=== PATIENT | female | born 1965 | race Caucasian/White ===

== ENCOUNTER 2022-02-20 12:44 | Outpatient (CLI) | payer OTHER, SELFPAY ==
--- NOTE | 2022-02-20 14:36 | WPDPFTINT ---
PFT Procedure Performed PFT Procedure Performed Plethysmography (Lung Vol) Diffusing Cap (DLCO) Flow Vol Loop Spirometry w/o Bronchodil PFT Interpretation Lung volumes were measured with the body plethysmography method. Lung volumes are unremarkable. Spirometry showed normal expiratory flow rates and a normal FEV1 to FVC ratio 78%. No post bronchodilator study carried out. Lung diffusion capacity is mildly reduced at 68% predicted. The flow volume loop is unremarkable. Impression: Spirometry and lung volumes within the normal range. Mild reduction in lung diffusion capacity.
== END 2022-02-20 12:45 | disposition home or self-care (01) ==
LOC: ANHPFT 12:45
PROVIDERS: PCP Nurse Practitioner Adult Health; Visit Provider Physician Assistant
DX: J45.20 Mild intermittent asthma, uncomplicated (principal)
CPT/HCPCS: 94375; 94726; 94729

== ENCOUNTER 2022-03-11 09:10 | Outpatient (CLI) | payer OTHER, SELFPAY ==
--- NOTE | ~2022-03-11 | DEXA_ITS ---
Bone Density Report Name: YANI GARRETT Age: 56 Sex: Female Ethnicity: White Date of : 1965 Indication: postmenopausal; screening for osteoporosis; height loss; hysterectomy; Referring Provider: PEG, DAIJA Study: Bone densitometry was performed. Exam Date: March 11, 2022 Accession number: [id number] Bone Density: Region BMD T-score Z-score Classification AP Spine(L1, L2) 1.161 1.7 2.7 Normal Femoral Neck (Left) 0.724 -1.1 0.0 Osteopenia Total Hip (Left) 0.861 -0.7 0.1 Normal Femoral Neck (Right) 0.732 -1.1 0.0 Osteopenia Total Hip (Right) 0.867 -0.6 0.1 Normal Total Hip Mean 0.864 -0.7 0.1 Normal World Health Organization criteria for BMD impression classify patients as: Normal (T-score at or above -1.0), Osteopenia (T-score between -1.0 and -2.5), or Osteoporosis (T-score at or below -2.5). 10-year Fracture Risk: FRAX not reported because: Treated for osteoporosis Clinical Information Provided by Patient: Smokes Is being treated for osteoporosis Has used the following medications: Vitamin D, Calcium Has the following medical conditions: Hysterectomy, hypothyroidism Patient maximum height was 64 Menopause Age: 49 Drinks caffeinated beverages Onset of menses at age 13 Number of children 3 Impression: The patient has low bone mass, based on the Left Femoral Neck T-score. The patient has risk factors, including: smoking. Discussion: It is important to ask patients whether they are taking their medications and to encourage continued and appropriate compliance with their osteoporosis therapies to reduce fracture risk. It is also important to review their risk factors and encourage appropriate calcium and vitamin D intakes, exercise, fall prevention and other lifestyle measures. Follow-Up: Consider a repeat BMD and Vertebral Fracture Assessment (VFA) exam in 2 years or sooner if medically necessary, to reassess this patient's status. Reported by: [facility] on 03/11/2022 9:32:00 AM. Reviewed, dictated and finalized at location [facility]
== END 2022-03-11 09:11 | disposition home or self-care (01) ==
LOC: ANHIMG 09:12
PROVIDERS: PCP Nurse Practitioner Adult Health; Visit Provider Physician Assistant
DX: Z13.820 Encounter for screening for osteoporosis (principal); M85.89 Other specified disorders of bone density and structure, multiple sites
CPT/HCPCS: 77080

== ENCOUNTER 2022-03-13 09:32 | Outpatient (CLI) | payer OTHER, SELFPAY ==
--- NOTE | 2022-03-13 11:00 | NEURO_ITS ---
Impression: # Complains of pain in lower extremities. History of low back spinal fusion. # Normal nerve conduction study including F-waves. # Needle/EMG exam revealed neurogenic change in bilateral EDB with no active fibs. # Clinical correlation recommended. Motor Nerve Conduction Lower Extremities Peroneal Nerve Conduction Velocity (m/sec) Terminal Latency (msec) Response Voltage(mV) Popliteal space-Ankle Ankle Extensor Dig Brevis Popliteal space Ankle Right 47 4.3 3 3 Left 42 4.6 1 1 Tibial Nerve Conduction Velocity (m/sec) Terminal Latency (msec) Response Voltage(mV) Popliteal space-Ankle Ankle-Extensor Dig Brevis Popliteal space Ankle Right 48 4.2 3 5 Left 44 4.1 2 4 F-waves Peroneal Nerve (ms) Tibial Nerve (ms) Right 52.5 52.2 Left 54.3 53.4 Sensory Nerve Conduction Lower Extremities Sural Nerve Stimulation Terminal Latency (msec) Ankle Response Voltage (uV) Ankle Response Velocity (m/sec) Right 3.2 8 50 Left 3.3 8 48 Superficial Peroneal Nerve Stimulation Terminal Latency (msec) Ankle Response Voltage (uV) Ankle Response Velocity (m/sec) Right 3.2 11 50 Left 3.0 5 53 Left Right Muscles Examined Fibrillation Fasciculation Scarcity Voltage Duration Left Right Left Right Left Right Left Right Left Right X X Ant Tibialis X X Gastroc X X Fibularis Long X X Flex Dig Long X X Ext Dig Brev +++ +++ Decr Decr >12ms >12ms Abd Hallucis X X Quadriceps Paraspinals MTDD
== END 2022-03-13 09:33 | disposition home or self-care (01) ==
LOC: ANHNEURO 09:34
PROVIDERS: PCP Nurse Practitioner Adult Health; Visit Provider Nurse Practitioner Adult Health
DX: M47.26 Other spondylosis with radiculopathy, lumbar region (principal)
CPT/HCPCS: 95886; 95910

== ENCOUNTER 2022-04-10 08:36 | Outpatient (CLI) | payer OTHER, SELFPAY ==
--- NOTE | ~2022-04-10 | MR_ITS ---
MRI of the lumbar spine Clinical History: Spondylosis, radiculopathy Technique: Axial T2-weighted images, and sagittal T1-weighted, T2-weighted, and T2 fat-sat images wer e acquired. Findings: There is posterior fusion hardware from L3 through L5, with bilateral rods and transpedicul ar screws present. There is disc fusion device at the L4-L5 disc space. Laminectomy defects of L4 and L5 are present. There are reactive marrow signal changes due to underlying degenerative disc disease , most notably about the L2-L3 disc space. Grade 1 anterolisthesis of L5 over S1 noted. No acute frac ture. At L1-L2, disc bulge and facet arthropathy result in mild to moderate thecal sac compression. Bilater al neural foramina are preserved. At L2-L3, there is probable disc bulge with probable superimposed chronic disc extrusion extending muse periorly. These factors, and comminution with facet arthropathy, contribute to severe thecal sac comp ression. There is severe right neural foraminal narrowing. Left neural foramen preserved. At L3-L4, no definite disc bulge or herniation seen. No spinal canal stenosis. Probable mild to moder ate bilateral neural foraminal narrowing. At L4-L5, no definite disc bulge or herniation. No oxana spinal canal stenosis. Suspected mild to mod erate left neural foraminal narrowing. At L5-S1, there is disc uncovering and facet arthropathy. No oxana spinal canal stenosis. There is pr obable moderate to severe bilateral neural foraminal narrowing. Paravertebral soft tissues are unremarkable. Impression: Disc extrusion at L2-L3 with additional degenerative factors, which contribute to severe thecal sac c ompression and severe right neural foraminal narrowing at this level. Posterior fusion from L3 through L5 with associated hardware and L4 and L5 laminectomy defects. Grade 1 anterolisthesis of L5 over S1. Mild to moderate thecal sac compression at L1-L2. Additional degenerative changes and neural foraminal narrowing, as detailed above. Reviewed, dictated and finalized at [facility] M. [employer] Impression: Disc extrusion at L2-L3 with additional degenerative factors, which contribute to severe thecal sac compression and severe right neural foraminal narrowing at this level. Posterior fusion from L3 through L5 with associated hardware and L4 and L5 lami nectomy defects. Grade 1 anterolisthesis of L5 over S1. Mild to moderate thecal sac compression at L1-L2. Additional degenerative changes and neural foraminal narrowing, as detailed abo ve.
== END 2022-04-10 08:37 | disposition home or self-care (01) ==
PROVIDERS: Visit Provider Nurse Practitioner Adult Health
DX: M51.16 Intervertebral disc disorders with radiculopathy, lumbar region (principal); M47.26 Other spondylosis with radiculopathy, lumbar region
CPT/HCPCS: 72148

== ENCOUNTER 2022-04-29 08:00 | Outpatient (RCR) | payer OTHER, SELFPAY ==
--- NOTE | 2022-02-07 13:42 | PTOPEVAL1 ---
Assessment and note entered by Donte Graf, PT, DPT Evaluation Information Assessment Status Evaluation Diagnosis back pain Onset 4 years Subjective Information Pt states she has R shoulder pain, sacral pain, pain down the entire front and back on her R leg, and muscle cramping down her L leg. She states she had a lumbar fusion about 4 years ago but cannot recall which levels. She states she screws in her back that have undone themselves but that it is nothing to worry about right now . She states her pain is the same and before she had the surgery. Pt states she worked for a few years after her surgery but is not currently, she also reports last year she had covid and has brain manage from it. Reported Pain Level Pain Score 5: Self Report Assessment PT Clinical Summary Baylee presents to therapy today for her initial evaluation with a diagnosis of lumbar radiculopathy. Today she demonstrates limitations in her lumbar mobility, likely d/t her prior fusion but demonstrates normal and pain free BLE motion excluding active hip extension. She demonstrates BLE weakness globally with an presence of jerky motions with increased resistance. She has tenderness to palpation in her R piriformis and reports on numbness and tingling that does down her R leg. Tenderness was also reported in her L lumbar paraspinals and there was palpable cordlike tissue tightness. Skilled physical therapy services are indicated to address the deficits noted above, to manage pain, to decreased soft tissue reconstruction, and to promote improved functional mobility. Modified Oswestry 29/50, 58% disability Plan of Care Interventions Electrical Stimulation,Gait Training,Hot Pack/Cold Pack,Manual Therapy,Neuro Re-education,Patient/ Caregiver Educati,Therapeutic Activities, Therapeutic Exercise,Ultrasound PT Services Indicated Yes Treatment Frequency and 1x/wk for 6 wks Duration These treatments will address the objective and functional deficits as defined above. The patient will be advanced safely and appropriately in order for the patient to progress towards his/her prior level of function. Additional exercises will be introduced and as well as a comprehensive home exercise program upon discharge, if needed, ?to ensure carryover of functional gains achieved in the clinic. This treatment plan has been reviewed and agreement upon by the patient.
--- NOTE | 2022-03-12 17:21 | PCPTNOTE ---
Patient called & cancelled her next 2 scheduled appointments this due to transportations issues. She is going to try to get them rescheduled.
--- NOTE | 2022-04-02 09:53 | PTOPPROG ---
Assessment and note entered by Donte Graf, PT, DPT Evaluation Information Assessment Status Progress Diagnosis back pain Onset 4 years Subjective Information Pt states overall she has good days and bad days. She states her L leg is more bothersome than her R leg. She reports intermittent complaince with her HEP. She states her problem is just her weight. Pt states she just took all of her pain meds so her pain is not bad. Assessment PT Clinical Summary Jaycob presents to therapy today for her progres report following 3 visits of skilled therapy. Her attendance has been limited d/t transportation issues as she is ride dependent. She demonstrates improvements in her gait speed but continues to have significant gait deviations. She has not improved her strength or lumbar ROM this date and also reports increased L hip pain today compared to her intial visit. Continuation of skilled therapy services are indicated to progress strength, ROM, balance, to manage pain, to progress towards therapy goals, and to promote unlimited functional mobility. Plan of Care Interventions Electrical Stimulation,Gait Training,Hot Pack/Cold Pack,Manual Therapy,Neuro Re-education,Patient/ Caregiver Educati,Therapeutic Activities, Therapeutic Exercise,Ultrasound PT Services Indicated Yes Treatment Frequency and 1x/wk for 4 wks Duration These treatments will address the objective and functional deficits as defined above. The patient will be advanced safely and appropriately in order for the patient to progress towards his/her prior level of function. Additional exercises will be introduced and as well as a comprehensive home exercise program upon discharge, if needed, ?to ensure carryover of functional gains achieved in the clinic. This treatment plan has been reviewed and agreement upon by the patient.
--- NOTE | 2022-04-29 08:53 | PTOPDC ---
Assessment and note entered by Donte Graf, PT, DPT Evaluation Information Assessment Status Discharge Diagnosis back pain Onset 4 years Subjective Information Pt states her whole R sided is jacked up . She states sometimes she gets a little bit of relief but overall she feels about the same as when she started therapy. She reports her pain as 8/10 at the worst in the last week. She reports 50% improvement in overall symptoms. Reported Pain Level Pain Score 3: Self Report Assessment PT Clinical Summary Baylee presents to therapy today for her progress report following 6 visits of skilled therapy to treat her low back pain. Today she demonstrates improved lumbar active ROM, and a decreased pain with active motion. She demonstrates improved LE strength however this is still lacking from expected. Overall she has improved her 2 min walk distance from 370ft to 470ft. She states she has learned a lot from therapy and does not feel like she needs to continue. Therapist is agreeable to this. She will be discharged from skilled therapy services at this time with instruction to continue her HEP upon discharge and to follow up with her referring provider if needed. Plan of Care PT Services Indicated Yes Treatment Frequency and to be discharged Duration
== END 2022-04-29 11:16 | disposition home or self-care (01) ==
LOC: ANHGOSHPT 08:00
PROVIDERS: PCP Nurse Practitioner Adult Health; Visit Provider Nurse Practitioner Adult Health
DX: M47.26 Other spondylosis with radiculopathy, lumbar region (principal)
CPT/HCPCS: 97110; 97112; 97140; 97161; 97530